=== PATIENT | male | born 1995 | race Caucasian/White ===

== ENCOUNTER 2017-11-30 23:30 | Emergency (ER) | payer OTHER ==
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
== END 2017-12-01 00:25 | disposition home or self-care (01) ==
LOC: VM.ED 23:30
DX: S20.211A Contusion of right front wall of thorax, initial encounter (principal); Z88.0 Allergy status to penicillin; V58.5XXA Driver of pick-up truck or van injured in noncollision transport accident in traffic accident, initial encounter
CPT/HCPCS: 71101-RT; 99284